=== PATIENT | male | born 1980 | race Hispanic/Latino ===

== ENCOUNTER 2019-05-17 09:38 | Emergency (ER) | payer SELFPAY ==
[2019-05-17] MEDS ORDERED: MORPHINE SULFATE 2 MG INJ IV ONE (09:55)
[2019-05-17] MEDS ORDERED: Sodium Chloride 0.9% 1000 ML 1,000 ML IV STA (09:55)
--- NOTE | 2019-05-17 10:00 | ERPHSYRPT ---
- History of Present Illness Time Seen by Provider: 05/17/19 09:57 Historian: patient Exam Limitations: no limitations Patient Subjective Stated Complaint: Pt states "I have had horrible diarrhea for the past two days. I feel extremely nauseated and do not feel well." Triage Nursing Assessment: Pt presented alert and oriented X 3, skin pwd. Pt ambulates with an uprigth steady gait, able to speak in claer full sentences. Pt in no apparent respiratory distress. Physician History: Mr Doshi is a 38 years old male patient came to ER states "I have had horrible diarrhea for the past two days. I feel extremely nauseated and do not feel well." Last meal was 2 days ago. No fever, chills Timing/Duration: day(s) (2 days) Activities at Onset: none Quality: cramping Abdominal Pain Onset Location: generalized abdomen Pain Radiation: no radiation Severity of Pain-Max: moderate Severity of Pain-Current: moderate Modifying Factors: Improves With: nothing Associated Symptoms: diarrhea, loss of appetite, nausea Previous symptoms: different symptoms Allergies/Adverse Reactions: No Known Drug Allergies Allergy (Unverified 05/17/19 09:48) Hx Tetanus, Diphtheria Vaccination/Date Given: No Hx Influenza Vaccination/Date Given: No Hx Pneumococcal Vaccination/Date Given: No Immunizations Up to Date: No - Review of Systems Constitutional: No Fever, No Chills Eyes: No Symptoms Ears, Nose, & Throat: No Symptoms Respiratory: No Cough, No Dyspnea Cardiac: No Chest Pain, No Edema, No Syncope Abdominal/Gastrointestinal: No Abdominal Pain, No Nausea, No Vomiting, No Diarrhea Genitourinary Symptoms: No Dysuria Musculoskeletal: No Back Pain, No Neck Pain Skin: No Rash Neurological: No Dizziness, No Focal Weakness, No Sensory Changes Psychological: No Symptoms Endocrine: No Symptoms All Other Systems: Reviewed and Negative - Past Medical History Pertinent Past Medical History: No - Past Surgical History Past Surgical History: Yes Other Surgical History: appendix - Social History Smoking Status: Never smoker Exposure to second hand smoke: Yes Drug Use: none Patient Lives Alone: No - Nursing Vital Signs Nursing Vital Signs: Initial Vital Signs Temperature 97.6 F 05/17/19 09:43 Pulse Rate 100 H 05/17/19 09:43 Respiratory Rate 18 05/17/19 09:43 Blood Pressure 161/108 05/17/19 09:43 O2 Sat by Pulse Oximetry 98 05/17/19 09:43 Pain Scale Pain Intensity 5 - Physical Exam General Appearance: mild distress, alert Eye Exam: PERRL/EOMI, eyes nml inspection Ears, Nose, Throat Exam: normal ENT inspection, pharynx normal, moist mucous membranes Neck Exam: normal inspection, non-tender, supple, full range of motion Respiratory Exam: normal breath sounds, lungs clear, No respiratory distress Cardiovascular Exam: regular rate/rhythm, normal heart sounds Gastrointestinal/Abdomen Exam: tenderness, guarding, No mass Back Exam: normal inspection, normal range of motion, No CVA tenderness, No vertebral tenderness Extremity Exam: normal inspection, normal range of motion, pelvis stable Neurologic Exam: alert, oriented x 3, cooperative, normal mood/affect, nml cerebellar function, sensation nml, No motor deficits Skin Exam: normal color, warm, dry SpO2: 98 - Course Nursing assessment & vital signs reviewed: Yes - CT Exams Abdomen/Pelvis CT Interpretation: Tele-radiologist Report Ordered Tests: Active Orders 24 hr Category Date Time Status IV Insertion STAT Care 05/17/19 09:55 Active ABDOMEN AND PELVIS W/0 CONTRAS [CT] Stat Exams 05/17/19 09:55 Taken AMYLASE Stat Lab 05/17/19 09:50 Completed CBC W DIFF Stat Lab 05/17/19 09:50 Completed CMP Stat Lab 05/17/19 09:50 Completed LIPASE Stat Lab 05/17/19 09:50 Completed Lactic Acid Stat Lab 05/17/19 09:55 Completed Manual Differential NC Stat Lab 05/17/19 09:50 Completed UA W/RFX UR CULTURE Stat Lab 05/17/19 09:55 Uncollected Medication Summary Discontinued Medications Generic Name Dose Route Start Last Admin Trade Name Freq PRN Reason Stop Dose Admin Sodium Chloride 1,000 mls @ 999 mls/hr 05/17/19 09:55 05/17/19 11:19 Sodium Chloride 0.9% 1000 Ml IV 05/17/19 10:55 Infused .Q1H1M STA Infusion Sodium Chloride Confirm 05/17/19 10:02 Sodium Chloride 0.9% 1000 Ml Administered 05/17/19 10:03 Dose 1,000 mls @ ud .ROUTE .STK-MED ONE Morphine Sulfate 2 mg 05/17/19 09:55 05/17/19 10:03 Morphine Sulfate 2 Mg Inj IV 05/17/19 09:56 2 mg STAT ONE Administration Morphine Sulfate Confirm 05/17/19 10:02 Morphine Sulfate 2 Mg Inj Administered 05/17/19 10:03 Dose 2 mg .ROUTE .STK-MED ONE Ondansetron HCl 4 mg 05/17/19 10:06 05/17/19 10:07 Zofran 4 Mg/2 Ml Vial IV 05/17/19 10:07 4 mg STAT ONE Administration Ondansetron HCl Confirm 05/17/19 10:05 Zofran 4 Mg/2 Ml Vial Administered 05/17/19 10:06 Dose 4 mg .ROUTE .STK-MED ONE Lab/Rad Data: Laboratory Result Diagrams 05/17/19 09:50 05/17/19 09:50 Laboratory Results 05/17/19 05/17/19 05/17/19 Range/Units 09:55 09:50 09:50 WBC 12.2 H (4.0-10.5) K/mm3 RBC 5.33 (4.1-5.6) M/mm3 Hgb 15.7 (12.5-18.0) gm/dl Hct 46.9 (42-50) % MCV 88.0 (78-100) fl MCH 29.5 (26-32) pg MCHC 33.5 (32-36) g/dl RDW 14.0 (11.5-14.0) % Plt Count 317 (150-450) K/mm3 MPV 10.0 H (6-9.5) fl Sodium 137 (137-145) mmol/L Potassium 3.5 (3.5-5.1) mmol/L Chloride 97 L (98-107) mmol/L Carbon Dioxide 26 (22-30) mmol/L Anion Gap 18.0 H (5-15) MEQ/L BUN 14 (9-20) mg/dL Creatinine 0.76 (0.66-1.25) mg/dL Estimated GFR > 60.0 ML/MIN Glucose 106 (74-106) mg/dL Lactic Acid 1.6 (0.4-2.0) Calcium 9.3 (8.4-10.2) mg/dL Total Bilirubin 1.00 (0.2-1.3) mg/dL AST 20 (17-59) U/L ALT 47 (0-50) U/L Alkaline Phosphatase 82 (38-126) U/L Serum Total Protein 8.3 H (6.3-8.2) g/dL Albumin 4.9 (3.5-5.0) g/dL Amylase 77 (30-110) U/L Lipase 99 (23-300) U/L - Progress Progress: improved, pain not gone completely Counseled pt/family regarding: lab results, diagnosis, need for follow-up, rad results - Departure Departure Disposition: Home Clinical Impression: Enteritis due to Campylobacter species Condition: Stable Critical Care Time: No Referrals: DOCTOR,NO FAMILY [Primary Care Provider] - Instructions: Campylobacter Infection (DC) Additional Instructions: Discharge/Care Plan MORIAH DOSHI was seen on 05/17/19 in the Emergency Room. The patient was counseled regarding Diagnosis,Lab results, Imaging studies, need for follow up and when to return to the Emergency Room. Prescriptions given: Discharge Note I have spoken with the patient and/or caregivers. I have explained the patient' s condition, diagnosis and treatment plan based on the information available to me at this time. I have answered the patient's and/or caregiver's questions and addressed any concerns. The patient and/or caregivers have as good understanding of the patient's diagnosis, condition and treatment plan as can be expected at this point. The vital signs have been stable. The patient's condition is stable and appropriate for discharge from the emergency department. The patient will pursue further outpatient evaluation with the primary care physician or other designated or consulting physician as outlined in the discharge instructions. The patient and/or caregivers are agreeable to this plan of care and follow-up instructions have been explained in detail. The patient and/or caregivers have received these instruction. The patient/and or caregivers are aware that any significant change in condition or worsening of symptoms should prompt an immediate return to this or the closest emergency department or call 911. VOMITING AND DIARRHEA 1. Take only small amounts of clear, cool liquids at frequent intervals as tolerated for the next 24-48 hours. Avoid milk products and orange juice. Clear liquids are those liquids which you can see through. 2. Pedialyte and popsicles are recommended clear liquids. 3. If the condition worsens you should contact your family physician or return to the emergency department for re-evaluation. Prescriptions: Ciprofloxacin [Cipro 500 MG] 500 mg PO BID #15 tablet
[2019-05-17] MEDS ORDERED: Sodium Chloride 0.9% 1000 ML 1,000 ML ONE (10:02)
[2019-05-17] MEDS ORDERED: MORPHINE SULFATE 2 MG INJ ONE (10:02)
[2019-05-17] MEDS ORDERED: Zofran 4 MG/2 ML VIAL ONE (10:05)
[2019-05-17] MEDS ORDERED: Zofran 4 MG/2 ML VIAL IV ONE (10:06)
[2019-05-17 10:28] LABS: Hematocrit 46.9 % (42-50); Hemoglobin 15.7 gm/dl (12.5-18.0); Mean Corpuscular Hemoglobin 29.5 pg (26-32); Mean Corpuscular Hgb Concent. 33.5 g/dl (32-36); Platelet Count 317 K/mm3 (150-450); Red Blood Count 5.33 M/mm3 (4.1-5.6); White Blood Count 12.2 K/mm3 (4.0-10.5)
[2019-05-17 10:32] LABS: ALBUMIN 4.9 g/dL (3.5-5.0); ALKALINE PHOSPHATASE 82 U/L (38-126); AMYLASE 77 U/L (30-110); BLOOD UREA NITROGEN 14 mg/dL (9-20); CHLORIDE 97 mmol/L (98-107); Calcium 9.3 mg/dL (8.4-10.2); Carbon Dioxide 26 mmol/L (22-30); Creatinine 1 0.76 mg/dL (0.66-1.25); Glucose 106 mg/dL (74-106); LIPASE 99 U/L (23-300); Potassium 3.5 mmol/L (3.5-5.1); SGOT/AST 20 U/L (17-59); SGPT/ALT 47 U/L (0-50); SODIUM 137 mmol/L (137-145); Total Protein 8.3 g/dL (6.3-8.2)
[2019-05-17 11:25] VITALS: O2SAT 98
[2019-05-17 11:27] VITALS: BP 129/92; PULSE 95
[2019-05-17 11:55] LABS: Lymphocytes 7 % (24-44); Monocyte 2 % (0.0-12.0); Neutrophils 91 % (36.-66.); Platelet Estimate NORMAL (NORMAL); Total Cells Counted 100
--- NOTE | 2019-05-17 22:19 | XRAY ---
Indication: Abdomen pain, nausea, vomiting, and diarrhea. Multiple contiguous axial images obtained through the abdomen and pelvis without contrast as ordered. Comparison: None Lung bases demonstrates minimal/mild dependent atelectasis, right greater than left. No infiltrate or effusion. Heart is not enlarged. Noncontrasted stomach unremarkable. Mild fluid distended ileal and jejunal bowel loops with some fluid leveling. Colon also demonstrates moderate diffuse air distention up to 6 cm with some fluid leveling including rectum. Findings favor enterocolitis. Small left colic gutter and pelvic free fluid presumed reactive. No walled off fluid collection or free air. Previous appendectomy. Remaining liver, gallbladder, pancreas, spleen, adrenal glands, kidneys, ureters, bladder, and aorta appear unremarkable for noncontrast exam. Osseous structures intact. Impression: Distended small and large bowel loops as detailed with some fluid leveling. Rule out enterocolitis. Small left colic gutter and pelvic free fluid presumed reactive. Comment: Preliminary interpretation was made by C. No critical discrepancy. CTDI 19.26
== END 2019-05-17 11:47 | disposition home or self-care (01) ==
LOC: ED 09:38
DX: A04.5 Campylobacter enteritis (principal)
CPT/HCPCS: 36000; 36415; 74176; 80053; 82150; 83605; 83690; 85025; 96360; 96374; 96375; 99284; J2270; J2405